=== PATIENT | female | born 1950 | race Caucasian/White ===

== ENCOUNTER 2024-04-06 11:54 | Emergency (ER) | payer MEDICARE ==
[~2024-04-06] VITALS: Ht 172.7 cm; Wt 73.5 kg
[2024-04-06 12:00] VITALS: PULSE 71; RESP 18; TEMP 98
[2024-04-06 15:12] VITALS: BP 126/82; PULSE 86; RESP 18; TEMP 98.2; O2SAT 98
== END 2024-04-06 16:22 | disposition home or self-care (01) ==
LOC: ER 12:02
DX: R20.2 Paresthesia of skin (principal); I48.91 Unspecified atrial fibrillation; Z86.73 Personal history of transient ischemic attack (TIA), and cerebral infarction without residual deficits
CPT/HCPCS: 93005; 99283